=== PATIENT | male | born 1965 | race Caucasian/White ===

== ENCOUNTER 2025-03-17 17:30 | Emergency (ER) | payer MEDICARE, OTHER, SELFPAY ==
[~2025-03-17 17:30] MED LIST: Iopamidol 370 76% 100 ML VIAL ONE
[2025-03-17] MEDS ORDERED: Acetaminophen 500 MG TAB ONE (18:08)
[2025-03-17] MEDS ORDERED: cloNIDine 0.1 MG TAB ONE (18:08)
[2025-03-17 18:31] LABS: INR-International Normal Ratio 1.0; Prothrombin Time 13.6 sec (12.0-14.7)
[2025-03-17 18:32] LABS: PTT 28.7 sec (22.9-36.1)
[2025-03-17 18:41] LABS: Hematocrit 42.3 % (42.0-52.0); Hemoglobin 14.3 g/dL (14.0-18.0); Mean Corpuscular Hemoglobin 31.1 pg (27.0-31.0); Mean Corpuscular Volume 92.0 fl (78.0-98.0); Platelet Count 194 10x3/uL (130-400); Red Blood Cell (RBC) Count 4.60 mill/uL (4.70-6.10); Troponin I 0.014 ng/mL (< 0.028); White Blood Cell (WBC) Count 7.3 10x3/uL (4.8-10.8)
[2025-03-17 18:44] LABS: ALT (SGPT) 21 U/L (Less than 45); AST (SGOT) 33 U/L (11-34); Albumin 4.2 g/dL (3.1-4.5); Alkaline Phosphatase 53 U/L (40-110); Anion Gap 17 mmol/L (10-20); BUN (Urea Nitrogen) 17 mg/dL (8.4-25.7); Bilirubin, Total 1.0 mg/dL (0.3-1.2); Calc. Creatinine Clearance 0 mL/min (70-130); Calcium 9.2 mg/dL (7.8-10.44); Carbon Dioxide 24 mmol/L (22-29); Chloride 102 mmol/L (98-107); Globulin 2.9 g/dL (2.4-3.5); Glucose 108 mg/dL (70-105); Potassium 4.6 mmol/L (3.5-5.1); Sodium 138 mmol/L (136-145)
[2025-03-17 18:47] LABS: MDiff Complete? YES
== END 2025-03-17 20:00 | disposition home or self-care (01) ==
LOC: NAV ERS 17:30
DX: S80.01XA Contusion of right knee, initial encounter (principal); I11.0 Hypertensive heart disease with heart failure; I50.9 Heart failure, unspecified; E11.9 Type 2 diabetes mellitus without complications; I25.2 Old myocardial infarction; F17.210 Nicotine dependence, cigarettes, uncomplicated; Z79.84 Long term (current) use of oral hypoglycemic drugs; Z79.82 Long term (current) use of aspirin; Z95.9 Presence of cardiac and vascular implant and graft, unspecified; V13.9XXA Unspecified pedal cyclist injured in collision with car, pick-up truck or van in traffic accident, initial encounter
CPT/HCPCS: 70450; 71260; 72125; 74177; 80053; 84484; 85025; 85610; 85730; J7030; Q9967

== ENCOUNTER 2025-04-24 14:27 | Emergency (ER) | payer MEDICARE, OTHER ==
[2025-04-24] MEDS ORDERED: Ondansetron PF 4 MG/2 ML Vial ONE (15:01)
[2025-04-24 15:49] LABS: ALT (SGPT) 16 U/L (Less than 45); AST (SGOT) 33 U/L (11-34); Albumin 4.0 g/dL (3.1-4.5); Alkaline Phosphatase 64 U/L (40-110); Anion Gap 18 mmol/L (10-20); BUN (Urea Nitrogen) 15 mg/dL (8.4-25.7); Bilirubin, Total 0.9 mg/dL (0.3-1.2); Calc. Creatinine Clearance 0 mL/min (70-130); Calcium 9.4 mg/dL (7.8-10.44); Carbon Dioxide 25 mmol/L (22-29); Chloride 97 mmol/L (98-107); Globulin 3.7 g/dL (2.4-3.5); Glucose 170 mg/dL (70-105); Potassium 3.4 mmol/L (3.5-5.1); Sodium 137 mmol/L (136-145)
[2025-04-24 15:54] LABS: Hematocrit 43.8 % (42.0-52.0); Hemoglobin 15.1 g/dL (14.0-18.0); Mean Corpuscular Hemoglobin 30.4 pg (27.0-31.0); Mean Corpuscular Volume 88.1 fl (78.0-98.0); Platelet Count 215 10x3/uL (130-400); Red Blood Cell (RBC) Count 4.97 mill/uL (4.70-6.10); White Blood Cell (WBC) Count 3.2 10x3/uL (4.8-10.8)
[2025-04-24 15:59] LABS: Platelet Adequacy Comment Appears Adequate
[2025-04-24 16:05] LABS: Glucose, Urine (Dipstick) >=1000 mg/dL (Negative); Leukocyte Negative (Negative); Protein, Urine (Dipstick) Negative (Neg-Trace); Specific Gravity, Urine 1.010 (1.005-1.030)
[2025-04-24 16:25] LABS: CAUTI Indications for Culture Pelvic or flank pain; WBC/HPF 0-3 HPF (0-3)
[2025-04-24 16:26] LABS: Urine Culture Reflex No No
== END 2025-04-24 18:45 | disposition short-term general hospital (02) ==
LOC: NAV ERS 14:27
DX: N50.811 Right testicular pain (principal); I11.0 Hypertensive heart disease with heart failure; I50.9 Heart failure, unspecified; E11.9 Type 2 diabetes mellitus without complications; I25.2 Old myocardial infarction; F17.210 Nicotine dependence, cigarettes, uncomplicated; Z79.899 Other long term (current) drug therapy; Z79.84 Long term (current) use of oral hypoglycemic drugs; Z79.82 Long term (current) use of aspirin
CPT/HCPCS: 80053; 81001; 85025; 96374; 96375; 96376; J2270; J2405